=== PATIENT | female | born 1980 | race Two or more races ===

== ENCOUNTER 2022-01-30 23:34 | Emergency (ER) | payer OTHER ==
[2022-01-30 23:44] VITALS: BP 187/113; PULSE 90; RESP 16; TEMP 99.1; BMI 34.2
== END 2022-01-31 00:23 | disposition home or self-care (01) ==
LOC: FER 23:34
DX: T16.1XXA Foreign body in right ear, initial encounter (principal)
CPT/HCPCS: 99281-25

== ENCOUNTER 2022-09-29 16:28 | Emergency (ER) | payer OTHER ==
[2022-09-29 16:44] VITALS: BP 144/96; PULSE 98; RESP 18; TEMP 97.8; BMI 34.9
== END 2022-09-29 17:20 | disposition home or self-care (01) ==
LOC: FER 16:28
DX: I10 Essential (primary) hypertension (principal)
CPT/HCPCS: 99282-25

== ENCOUNTER 2022-10-04 12:14 | Emergency (ER) | payer OTHER ==
[2022-10-04 12:50] VITALS: BP 145/104; PULSE 136; RESP 18; TEMP 100.6; BMI 33.8
[2022-10-04] MEDS ORDERED: IBUPROFEN 400 MG TABLET (FP) PO ONE ×2 (13:30→13:42)
== END 2022-10-04 13:47 | disposition home or self-care (01) ==
LOC: FER 12:14
DX: J02.0 Streptococcal pharyngitis (principal); Z20.822 Contact with and (suspected) exposure to COVID-19
CPT/HCPCS: 0241U-QW; 87651; 99283-25

== ENCOUNTER 2022-11-18 11:34 | Emergency (ER) | payer OTHER ==
[2022-11-18 11:44] VITALS: BP 146/103; PULSE 84; RESP 20; TEMP 98.4; BMI 33.8
[2022-11-18 12:01] LABS: HCG,QUALITATIVE URINE Negative
[2022-11-18] MEDS ORDERED: ONDANSETRON 4 MG/2 ML VIAL IVPUSH ONE (12:22)
[2022-11-18] MEDS ORDERED: FAMOTIDINE 20 MG/50 ML IVPB 20 MG/50 ML MG IVPB ONE ×2 (12:22→12:40)
[2022-11-18] MEDS ORDERED: SODIUM CHLORIDE 0.9% 1000 ML INFUS.BAG IV ONE (12:22)
[2022-11-18] MEDS ORDERED: ACETAMINOPHEN 1000 MG/100 ML BAG IVPB ONE (12:22)
[2022-11-18] MEDS ORDERED: MAG HYDROX/AL HYDROX/SIMETH 30 ML UNIT-DOSE CUP PO ONE (12:23)
[2022-11-18] MEDS ORDERED: ONDANSETRON 4 MG/2 ML VIAL ONE (12:40)
[2022-11-18] MEDS ORDERED: ACETAMINOPHEN INJECTION 100 ML IVPB ONE (12:40)
[2022-11-18 13:19] LABS: HEMATOCRIT 37.9 % (32.4-45.2); MCH 27.2 pg (25.7-33.7); MCHC 34.2 g/dl (32.0-36.0); MEAN CELL VOLUME 79.5 fl (80-96); MEAN PLT VOLUME 7.7 fl (7.5-11.1); RBC 4.77 10^6/uL (3.60-5.2); RDW 14.8 % (11.6-15.6); WHITE BLOOD COUNT 5.9 10^3/uL (4.0-10.8)
[2022-11-18 13:28] LABS: ALBUMIN 4.1 g/dl (3.4-5.0); BILIRUBIN,TOTAL 0.3 mg/dl (0.2-1); CALCIUM 9.2 mg/dl (8.5-10); CREATININE 0.7 mg/dl (0.55-1.3); POTASSIUM 4.3 mmol/L (3.5-5.1); TOT PROT 7.8 g/dl (6.4-8.2)
[2022-11-18] MEDS ORDERED: MAG HYDROX/AL HYDROX/SIMETH 30 ML UNIT-DOSE CUP ONE (13:48)
== END 2022-11-18 17:20 | disposition home or self-care (01) ==
LOC: FER 11:34
PROC: 3E033GC Introduction of Other Therapeutic Substance into Peripheral Vein, Percutaneous Approach (ICD-10-PCS; principal; 2022-11-18)
PROC: 3E033GC Introduction of Other Therapeutic Substance into Peripheral Vein, Percutaneous Approach (ICD-10-PCS; 2022-11-18)
PROC: 3E033GC Introduction of Other Therapeutic Substance into Peripheral Vein, Percutaneous Approach (ICD-10-PCS; 2022-11-18)
DX: R10.13 Epigastric pain (principal); R11.2 Nausea with vomiting, unspecified
CPT/HCPCS: 36415; 76705-TC; 80053; 81003; 83690; 84703; 85027; 99285-25

== ENCOUNTER 2023-03-10 09:53 | Emergency (ER) | payer OTHER ==
[2023-03-10 10:29] VITALS: TEMP 98; BMI 34.5
[2023-03-10] MEDS ORDERED: MAGNESIUM 1GM/D5W - 1 GM/100 ML IVPB IVPB ONE (10:55)
[2023-03-10] MEDS ORDERED: METOCLOPRAMIDE HCL INJECTION 10 MG/2 ML VIAL IVPUSH ONE (11:17)
[2023-03-10 12:03] LABS: HEMATOCRIT 41.3 % (32.4-45.2); HEMOGLOBIN 13.4 G/dL (10.7-15.3); MCH 25.3 pg (25.7-33.7); MCHC 32.4 g/dl (32.0-36.0); MEAN CELL VOLUME 78.3 fl (80-96); MEAN PLT VOLUME 7.8 fl (7.5-11.1); PLATELET COUNT 362.3 10^3/uL (134-434); RBC 5.28 10^6/uL (3.60-5.2); RDW 15.6 % (11.6-15.6); WHITE BLOOD COUNT 5.1 10^3/uL (4.0-10.8)
[2023-03-10 12:16] LABS: ALBUMIN 4.6 g/dl (3.4-5.0); BILIRUBIN,TOTAL 0.3 mg/dl (0.2-1); BLOOD UREA NITROGEN 7.6 mg/dl (7-18); CALCIUM 9.1 mg/dl (8.5-10.1); CREATININE 0.8 mg/dl (0.6-1.3); POTASSIUM 4.4 mmol/L (3.5-5.1); SGOT/AST 12.5 U/L (15-37); SGPT/ALT 17.2 U/L (7-52); TOT PROT 7.8 g/dl (6.4-8.2)
[2023-03-10] MEDS ORDERED: METOCLOPRAMIDE HCL INJECTION 10 MG/2 ML VIAL ONE (12:16)
[2023-03-10 12:17] LABS: ADD RBC MORPHOLOGY YES
[2023-03-10 13:03] LABS: ANISOCYTOSIS 1+; PLATELET ESTIMATE ADEQUATE
[2023-03-10 14:43] VITALS: BP 124/85; PULSE 90; RESP 16
== END 2023-03-10 14:43 | disposition home or self-care (01) ==
LOC: FER 09:53
PROC: 3E033GC Introduction of Other Therapeutic Substance into Peripheral Vein, Percutaneous Approach (ICD-10-PCS; principal; 2023-03-10)
DX: R51.9 Headache, unspecified (principal); R42 Dizziness and giddiness; R53.1 Weakness; R11.0 Nausea
CPT/HCPCS: 36415; 80053; 84439; 84443; 85025; 99284-25